=== PATIENT | male | born 1980 | race African-American/Black ===

== ENCOUNTER 2019-03-07 18:09 | Emergency (ER) | payer MEDICARE, MEDICAID ==
[2019-03-07] MEDS ORDERED: KETOROLAC 30 MG/ML VIAL IVP ONE (18:14)
--- NOTE | 2019-03-07 18:20 | Emergency Department Record ---
History of Present Illness - General Stated Complaint: MIDDLE BACK PAIN Time Seen by Provider: 03/07/19 18:10 Source: Patient Mode of Arrival: Ambulatory Limitations: No limitations - History of Present Illness Initial Comments: 38 yo male presents to ED for evaluation of right-sided mid-back pain for the past 4-5 days, denies known injury. Patient reports that he was seen and evaluated at [facility] 4 days ago, diagnosed as musculoskeletal back pain and prescribed pain medication, reports that his pain symptoms are worsening however. SO reports recent gastric bypass surgery, reports "I'm worried about his kidneys". Patient denies history of kidney stones, fevers, chills, or dysuria symptoms. MD Complaint: Back pain Onset/Timin -: Days(s) Similar Symptoms Previously: No Radiation: None Severity: Moderate Quality: Sharp Consistency: Intermittent Worsens With: Walking, Other (Trunk movement) Context: Unknown Associated Symptoms: Denies other symptoms - Related Data Home Medications Medication Instructions Recorded Confirmed Last Taken Amlodipine Besylate [Norvasc] 10 mg PO DAILY 03/07/19 03/07/19 Unknown Insulin Aspart [Novolog] 1 unit SQ WMEALS 03/07/19 03/07/19 Unknown Lisinopril 10 mg PO DAILY 03/07/19 03/07/19 Unknown Metformin HCl [Metformin HCl ER] 750 mg PO BID 03/07/19 03/07/19 Unknown Metoprolol Succinate 25 mg PO DAILY 03/07/19 03/07/19 Unknown Multivitamin [Daily Multiple 1 each PO DAILY 03/07/19 03/07/19 Unknown Vitamin] Nortriptyline HCl 50 mg PO QHS 03/07/19 03/07/19 Unknown Omeprazole [Prilosec] 20 mg PO BID 03/07/19 03/07/19 Unknown Sitagliptin Phosphate [Januvia] 25 mg PO DAILY 03/07/19 03/07/19 Unknown Previous Rx's Medication Instructions Recorded Ibuprofen [Motrin] 800 mg PO Q6H PRN #30 tab 03/07/19 Allergies Allergy/AdvReac Type Severity Reaction Status Date / Time Penicillins Allergy PT UNSURE Verified 03/07/19 18:43 OF REACTION phenobarbital Allergy PT UNSURE Verified 03/07/19 18:43 OF REACTION phenytoin [From Dilantin] Allergy PT UNSURE Verified 12/16/19 18:43 OF REACTION Review of Systems Constitutional: Denies: Chills, Fever, Malaise, Night sweats Eyes: Denies: Eye discharge, Eye pain ENT: Denies: Congestion, Ear pain, Epistaxis Respiratory: Denies: Cough, Dyspnea, Hemoptysis Cardiovascular: Denies: Chest pain, Dyspnea on exertion Endocrine: Denies: Fatigue, Heat or cold intolerance Gastrointestinal: Denies: Abdominal pain, Nausea, Vomiting Genitourinary: Denies: Testicular pain, Testicular mass Musculoskeletal: Reports: Back pain. Denies: Arthralgia Skin: Denies: Bruising, Change in color Neurological: Denies: Abnormal gait, Confusion, Headache, Numbness Psychiatric: Denies: Anxiety Hematological/Lymphatic: Denies: Anemia Physical Exam - General General Appearance: Alert, Oriented x3, Cooperative, Mild distress Limitations: No limitations - Head Head exam: Atraumatic, Normocephalic, Normal inspection Head exam detail: negative: Abrasion, Contusion, Wade's sign, General tenderness, Hematoma, Laceration - Eye Eye exam: Normal appearance. negative: Conjunctival injection, Periorbital swelling, Periorbital tenderness, Scleral icterus - ENT Ear exam: negative: Auricular hematoma, Auricular trauma Nasal Exam: negative: Active bleeding, Discharge, Dried blood, Foreign body, Sinus tenderness Mouth exam: negative: Drooling, Laceration, Muffled voice, Tongue elevation - Neck Neck exam: Normal inspection. negative: Meningismus, Tenderness - Respiratory Respiratory exam: Normal lung sounds bilaterally. negative: Respiratory distress, Rhonchi, Stridor, Wheezes - Cardiovascular Cardiovascular Exam: Regular rate, Normal rhythm, Normal heart sounds - GI/Abdominal GI/Abdominal exam: Soft. negative: Distended, Rebound, Rigid, Tenderness - Rectal Rectal exam: Deferred - exam: Deferred - Extremities Extremities exam: Normal inspection. negative: Pedal edema, Tenderness - Back Back exam: Reports: CVA tenderness (R). Denies: CVA tenderness (L), Paraspinal tenderness - Neurological Neurological exam: Alert, Normal gait, Oriented X3 - Psychiatric Psychiatric exam: Normal affect, Normal mood - Skin Skin exam: Normal color. negative: Abrasion Type of lesion: abrasion Course - Reevaluation(s) Reevaluation #1: 03/07/19 19:42 Laboratory studies were reviewed and appear grossly unremarkable for an acute process. CT Abdomen and Pelvis: Negative Patient was updated on all results, symptoms appear most c/w musculoskeletal etiology. Recommended symptomatic care as discussed. Patient appears stable for discharge at this time. Medical Decision Making - Lab Data Result diagrams: 03/07/19 18:25 03/07/19 18:25 Disposition Disposition: Discharge Clinical Impression: Flank pain Disposition: Home, Self-Care Condition: (2) Stable Instructions: Flank Pain (ED) Additional Instructions: Return to ED if your symptoms worsen or if you have any concerns. Motrin 800 mg as directed. Follow-up with your family doctor in 3-5 days as directed. Prescriptions: Ibuprofen [Motrin] 800 mg PO Q6H PRN #30 tab PRN Reason: Pain - Moderate (5-7) Time of Disposition: 19:43 Quality - Quality Measures Quality Measures: N/A - Blood Pressure Screening Does Patient Have Any of the Following: No Blood Pressure Classification: Normal BP Reading Systolic Measurement: 113 Diastolic Measurement: 72 Screening for High Blood Pressure: < Normal BP, F/U Not Required > [G8783]
[2019-03-07 18:34] LABS: ABSOLUTE NEUTROPHIL COUNT 3.19; BASO % 0.5 % (0-6); EOS % 9.8 % (0-6); GRAN % 48.2 % (47-80); HEMATOCRIT 45.3 % (42.0-52.0); HEMOGLOBIN 14.4 gm/dl (14.0-18.0); LYMPH % 31.2 % (16-45); MEAN CELL VOLUME 79.8 fl (81-97); MEAN CORPUSCULAR HEMOGLOBIN 25.4 pg (27-33); MEAN CORPUSCULAR HGB CONC 31.8 g/dl (32-36); MEAN PLATELET VOLUME 12.2 fl (7.4-10.4); MONO % 10.3 % (0-9); PLATELET COUNT 328 K/uL (130-400); RED BLOOD COUNT 5.68 M/uL (4.40-5.70); RED CELL DISTRIBUTION WIDTH 14.7 % (11.5-14.5); URINE BILIRUBIN SMALL (NEGATIVE); URINE BLOOD NEGATIVE (NEGATIVE); URINE COLOR YELLOW; URINE GLUCOSE (UA) NEGATIVE (NEGATIVE); URINE KETONE TRACE (NEGATIVE); URINE LEUKOCYTE ESTERASE NEGATIVE (NEGATIVE); URINE NITRITE NEGATIVE (NEGATIVE); URINE UROBILINOGEN 0.2 E.U./dL (0.20 - 1.00); WHITE BLOOD COUNT W/O DIFF 6.6 K/uL (4.2-12.2)
[2019-03-07 18:35] LABS: URINE APPEARANCE SL CLOUDY
[2019-03-07 18:41] LABS: URINE BACTERIA FEW; URINE MUCUS HEAVY; URINE RBC NONE SEEN (NONE SEEN); URINE WBC 0 - 2 (0-2/hpf)
[2019-03-07 18:48] LABS: BLOOD UREA NITROGEN 15 mg/dL (6-20); CREATININE 0.8 mg/dL (0.7-1.2); EST GLOMERULAR FILTRATION RATE > 60 mL/min
[2019-03-07 18:51] LABS: GLUCOSE,RANDOM 178 mg/dL (74-109)
[2019-03-07 18:53] LABS: ALT/SGPT 27 U/L (<41); AST/SGOT 17 U/L (10.0-50.0)
[2019-03-07 18:54] LABS: ALB/GLOB RATIO 1.5 (1.1-1.8); ALBUMIN 4.8 g/dL (4.0-5.0); ALKALINE PHOSPHATASE 118 U/L (40-129)
--- NOTE | 2019-03-07 19:31 | CT SCAN REPORT ---
EXAMINATION: CT Abdomen and Pelvis without Contrast EXAM DATE: 03/07/2019 7:08 PM TECHNIQUE: Spiral CT images were obtained from the lung bases to the ischial tuberosities without int ravenous contrast. Coronal and sagittal 2-D reconstructions were made from source images. INDICATION: right sided flank pain 1.5 weeks COMPARISON: None. FINDINGS: Evaluation of solid organs is degraded due to lack of intravenous contrast. Abdomen: The kidneys appear normal, with no evidence of stones or hydronephrosis. The other visualized solid o rgans are grossly unremarkable on this noncontrast exam. No free fluid or free air. Previous gastric surgery. Pelvis: No ureteric stones. No free fluid or free air. The pelvic organs are unremarkable. No inflammatory ch nina. IMPRESSION: 1. Negative. Dictated by: Jeffery Beauchamp MD on 03/07/2019 7:12 PM. .
== END 2019-03-07 19:52 | disposition home or self-care (01) ==
LOC: ER 18:09
DX: R10.31 Right lower quadrant pain (principal); M54.6 Pain in thoracic spine; I10 Essential (primary) hypertension; E11.9 Type 2 diabetes mellitus without complications; Z98.84 Bariatric surgery status
CPT/HCPCS: 74176; 80053; 81001; 85025; 96374; 99284; J1885